=== PATIENT | female | born 1990 | race Caucasian/White ===

== ENCOUNTER 2017-06-09 16:11 | Emergency (ER) | payer OTHER ==
[~2017-06-09] VITALS: Ht 157.5 cm; Wt 54.0 kg
[2017-06-09 17:10] LABS: CALCIUM 8.2 mg/dL (8.5-10.1); CARBON DIOXIDE 27.4 mmol/L (21-32); CHLORIDE SERUM 104 mmol/L (98-107); CREATININE SERUM 0.8 mg/dL (0.6-1.0); GFR1 > 60 mL/min; GLUCOSE SERUM 104 mg/dL (74-106); POTASSIUM SERUM 3.6 mmol/L (3.5-5.1); SODIUM SERUM 142 mmol/L (136-145)
[2017-06-09 17:15] LABS: ALKALINE PHOSPHATASE 80 U/L (46-116); ALT/SGPT 28 U/L (14-59); AST/SGOT 40 U/L (15-37); BASOPHIL % 0.6 % (0-2); BILIRUBIN TOTAL 0.71 mg/dL (0.20-1.00); PLATELET COUNT 294 x10^3mcL (130-400); RED CELL DISTRIBUTION WIDTH 13.1 % (11.5-14.5); TOTAL PROTEIN, SERUM 6.4 g/dL (6.4-8.2)
[2017-06-09 17:16] LABS: ALBUMIN 3.3 g/dL (3.4-5.0)
[2017-06-09 18:53] VITALS: BP 115/69
== END 2017-06-09 19:06 | disposition home or self-care (01) ==
LOC: ED 16:11
PROVIDERS: Specialist
DX: J40 Bronchitis, not specified as acute or chronic (principal); Z88.0 Allergy status to penicillin
CPT/HCPCS: 83880; J3411; J3475; J3490; J7030